=== PATIENT | female | born 1990 | race Caucasian/White ===

== ENCOUNTER → 2016-08-01 | Outpatient (CLI) | payer OTHER ==
[~2016-08-01] MED LIST: PHENERGAN VC +120 ML PO
--- NOTE | 2016-08-03 08:58 | RADIOLOGY REPORT PS360 ---
MRI-BRAIN W/WO HISTORY: Excessive sleeping, mood disorder MOOD DISORDER ORDERING PHYSICIAN: Felisha Juan APRN PATIENT AGE: 25 years COMPARISON: None TECHNIQUE: Standard multiplanar multiecho sequences are performed without and with gadolinium enhancement. FINDINGS: No midline shift, mass effect, intracranial hemorrhage, or hydrocephalus. No evidence of acute infarction. There is normal navas-white matter differentiation with no abnormal white matter signal intensity evident. No intra or extra-axial mass. No enhancing lesions. The cerebellopontine angles, cerebellum, and brainstem are unremarkable. Pituitary, optic chiasm, corpus callosum are unremarkable. No cerebellar ectopia No sinus air-fluid level. There is a small amount of fluid in right mastoid sinus. IMPRESSION: 1. Unremarkable MRI of the brain without and with contrast. 2. Minimal amount of fluid in right mastoid sinus.
== END ==
LOC: RAD 08:45
DX: F39 Unspecified mood [affective] disorder (principal)
CPT/HCPCS: A9576